=== PATIENT | male | born 1980 | race Caucasian/White ===

== ENCOUNTER 2019-05-12 09:15 | Emergency (ER) | payer SELFPAY ==
[2019-05-12] MEDS ORDERED: Adacel (T-DAP) 0.5 ML SYRINGE ONE (09:26)
[2019-05-12] MEDS ORDERED: Lidocaine 1% (PF) 30 ML VIAL ONE (09:39)
[2019-05-12] MEDS ORDERED: Morphine 4 MG/ML VIAL ONE (10:22)
[2019-05-12] MEDS ORDERED: Ondansetron PF 4 MG/2 ML Vial ONE (10:22)
[2019-05-12] MEDS ORDERED: Sodium Chloride 0.9% 0 ML ONE (10:22)
[2019-05-12] MEDS ORDERED: Sodium Chloride 0.9% 1,000 ML ONE (10:26)
== END 2019-05-12 12:00 | disposition home or self-care (01) ==
LOC: EDBD 09:15 → NAV ERS 09:15
DX: S61.012A Laceration without foreign body of left thumb without damage to nail, initial encounter (principal); F17.200 Nicotine dependence, unspecified, uncomplicated; W26.8XXA Contact with other sharp object(s), not elsewhere classified, initial encounter
CPT/HCPCS: 90471; 90715; 96372; J2001; J2270; J2405; J7050

== ENCOUNTER 2022-01-25 01:45 | Emergency (ER) | payer SELFPAY ==
[2022-01-25] MEDS ORDERED: Morphine 4 MG/ML VIAL ONE (02:11)
== END 2022-01-25 02:17 | disposition short-term general hospital (02) ==
LOC: NAV ERS 01:45
DX: N50.812 Left testicular pain (principal); F17.210 Nicotine dependence, cigarettes, uncomplicated
CPT/HCPCS: 96372; 99284; J2270

== ENCOUNTER 2022-04-28 19:10 | Emergency (ER) | payer SELFPAY ==
[2022-04-28] MEDS ORDERED: Acetaminophen 500 MG TAB ONE (19:53)
[2022-04-28 20:03] LABS: #Basophils 0.1 thou/uL (0.0-0.2); #Lymphocytes 1.7 thou/uL (1.20-3.40); #Monocytes 0.6 thou/uL (0.11-0.59); #Neutrophils 6.2 thou/uL (1.40-6.50); %Basophils 0.7 % (0.0-1.0); %Eosinophils 0.1 % (0.0-10.0); %Monocytes 6.5 % (0.0-10.0); %Neutrophils 72.7 % (42.0-75.0); Hemoglobin 13.7 g/dL (14.0-18.0); Mean Corpuscular Hemoglobin 28.3 pg (27.0-31.0); Mean Corpuscular Volume 88.4 fL (78.0-98.0); Mean Platelet Volume 7.3 fL (7.4-10.4); Platelet Count 263 thou/uL (130-400); RBC Distribution Width 13.8 % (11.5-14.5); Red Blood Cell (RBC) Count 4.84 mill/uL (4.70-6.10); White Blood Cell (WBC) Count 8.5 thou/uL (4.8-10.8)
[2022-04-28 20:19] LABS: ALT (SGPT) 25 U/L (8-55); AST (SGOT) 48 U/L (5-34); Alkaline Phosphatase 80 U/L (40-110); Anion Gap 17 mmol/L (10-20); BUN (Urea Nitrogen) 19 mg/dL (8.9-20.6); Bilirubin, Total 0.6 mg/dL (0.2-1.2); Calc. Creatinine Clearance 0 mL/min (70-130); Calcium 10.2 mg/dL (7.8-10.44); Carbon Dioxide 25 mmol/L (22-29); Chloride 103 mmol/L (98-107); Estimated GFR 76; Globulin 3.3 g/dL (2.4-3.5); Glucose 134 mg/dL (70-105); Protein, Total 8.3 g/dL (6.0-8.3); Sodium 141 mmol/L (136-145)
[2022-04-28 21:15] LABS: Bilirubin Negative (Negative); Blood, Urine Negative (Negative); Clarity Clear (Clear); Glucose, Urine (Dipstick) Negative (Negative); Ketone, Urine 15 mg/dL (Negative); Leukocyte Negative (Negative); Nitrite Negative (Negative); Protein, Urine (Dipstick) 30 mg/dL (Neg-Trace); Urobilinogen 0.2 mg/dL (Less than 2)
[2022-04-28 21:17] LABS: Specific Gravity, Urine 1.035 (1.002-1.036)
[2022-04-28 21:21] LABS: RBC/HPF 0-3 HPF (0-3)
[2022-04-28 21:22] LABS: Bacteria/HPF 1+ HPF (None Seen); Squamous Epithelial 0-3 HPF (0-3)
[2022-04-28] MEDS ORDERED: Sodium Chloride 0.9% 2,000 ML ONE (21:27)
[2022-04-28 21:43] LABS: Amphetamine Detected (NotDetected); Cocaine Metabolite Screen Not Detected (NotDetected); Methamphetamine Detected (NotDetected); Opiate Screen Not Detected (NotDetected); Phencyclidine (PCP) Not Detected (NotDetected); THC/Cannabinoid Screen Detected (NotDetected)
[2022-04-28 21:44] LABS: Barbiturates Screen Not Detected (NotDetected); Benzodiazepine Screen Not Detected (NotDetected); Medtox Control Line Valid? VALID (VALID); Methadone Not Detected (NotDetected); Oxycodone Screen Not Detected (NotDetected); Tricyclic Screen Not Detected (NotDetected)
[2022-04-28] MEDS ORDERED: cefTRIAXone\\ROCEPHIN 1 GM VIAL ONE (21:56)
[2022-04-28] MEDS ORDERED: Sodium Chloride 0.9% 100 ML ONE (21:56)
[2022-04-28] MEDS ORDERED: Azithromycin 250 MG TAB ONE (22:29)
== END 2022-04-28 22:49 | disposition home or self-care (01) ==
LOC: NAV ERS 19:10
DX: E86.0 Dehydration (principal); F15.10 Other stimulant abuse, uncomplicated; F17.200 Nicotine dependence, unspecified, uncomplicated
CPT/HCPCS: 36415; 80053; 80306; 81003; 81015; 85025; 87086; 96365; J0696; J3490; J7050

== ENCOUNTER 2022-07-28 17:54 | Emergency (ER) | payer OTHER, SELFPAY ==
[~2022-07-28 17:54] MED LIST: Iopamidol 370 76% 100 ML VIAL ONE
[2022-07-28] MEDS ORDERED: HYDROcodone/Acetaminophen 5/325 mg Tablet ONE (18:48)
[2022-07-28] MEDS ORDERED: CEFAZOLIN 1 GM VIAL ONE (18:49)
[2022-07-28] MEDS ORDERED: Ondansetron ODT 4 MG TAB ONE (18:49)
[2022-07-28] MEDS ORDERED: Sodium Chloride 0.9% 1,000 ML ONE (18:49)
[2022-07-28] MEDS ORDERED: Sodium Chloride 0.9% 100 ML ONE (18:49)
[2022-07-28 18:55] LABS: #Basophils 0.1 thou/uL (0.0-0.2); #Eosinphils 0.3 thou/uL (0.0-0.7); #Lymphocytes 1.4 thou/uL (1.20-3.40); #Monocytes 0.7 thou/uL (0.11-0.59); %Eosinophils 2.4 % (0.0-10.0); %Lymphocytes 12.1 % (21.0-51.0); %Monocytes 6.2 % (0.0-10.0); %Neutrophils 78.4 % (42.0-75.0); Hemoglobin 13.6 g/dL (14.0-18.0); Mean Corpuscular HGB CONC 32.5 g/dL (32.0-36.0); Mean Corpuscular Hemoglobin 30.4 pg (27.0-31.0); Mean Corpuscular Volume 93.4 fl (78.0-98.0); Mean Platelet Volume 6.7 fL (7.4-10.4); Platelet Count 350 10x3/uL (130-400); RBC Distribution Width 12.7 % (11.5-14.5); Red Blood Cell (RBC) Count 4.48 mill/uL (4.70-6.10); White Blood Cell (WBC) Count 11.4 10x3/uL (4.8-10.8)
[2022-07-28 19:12] LABS: ALT (SGPT) 17 U/L (8-55); AST (SGOT) 23 U/L (5-34); Albumin 4.2 g/dL (3.5-5.0); Alkaline Phosphatase 89 U/L (40-110); Anion Gap 17 mmol/L (10-20); BUN (Urea Nitrogen) 6 mg/dL (8.9-20.6); Bilirubin, Total 0.3 mg/dL (0.2-1.2); Calc. Creatinine Clearance 0 mL/min (70-130); Calcium 9.7 mg/dL (7.8-10.44); Carbon Dioxide 25 mmol/L (22-29); Chloride 98 mmol/L (98-107); Estimated GFR 116; Globulin 3.6 g/dL (2.4-3.5); Glucose 100 mg/dL (70-105); Potassium 4.6 mmol/L (3.5-5.1); Protein, Total 7.8 g/dL (6.0-8.3); Sodium 135 mmol/L (136-145)
[2022-07-28 19:38] LABS: Bilirubin Negative (Negative); Blood, Urine Negative (Negative); Clarity Clear (Clear); Glucose, Urine (Dipstick) Negative (Negative); Ketone, Urine Negative (Negative); Leukocyte Negative (Negative); Nitrite Negative (Negative); Protein, Urine (Dipstick) Trace mg/dL (Neg-Trace); Urobilinogen 0.2 mg/dL (Less than 2)
[2022-07-28] MEDS ORDERED: Vancomycin 1 GM VIAL ONE (20:14)
[2022-07-28] MEDS ORDERED: Sodium Chloride 0.9% 250 ML 250 ML ONE (20:14)
[2022-07-28] MEDS ORDERED: Morphine 2 MG/ML VIAL ONE (20:23)
[2022-07-28] MEDS ORDERED: Morphine 4 MG/ML VIAL ONE (20:24)
[2022-07-28] MEDS ORDERED: Boostrix 0.5 ML (Tdap) VIAL (>/=7 yrs of age) ONE (20:41)
[2022-07-28] MEDS ORDERED: Nicotine 21 MG PATCH TOP SCH (21:00)
== END 2022-07-28 22:38 | disposition home or self-care (01) ==
LOC: NAV ERS 17:54
DX: S20.211A Contusion of right front wall of thorax, initial encounter (principal); S60.511A Abrasion of right hand, initial encounter; S70.212A Abrasion, left hip, initial encounter; S70.211A Abrasion, right hip, initial encounter; S80.212A Abrasion, left knee, initial encounter; S80.211A Abrasion, right knee, initial encounter; S90.512A Abrasion, left ankle, initial encounter; S90.511A Abrasion, right ankle, initial encounter; S61.432A Puncture wound without foreign body of left hand, initial encounter; L03.114 Cellulitis of left upper limb; Z23 Encounter for immunization; F17.200 Nicotine dependence, unspecified, uncomplicated; V29.99XA Rider (driver) (passenger) of other motorcycle injured in unspecified traffic accident, initial encounter
CPT/HCPCS: 80053; 81003; 83605; 85025; 87040; 87077; 87149; 90471; 90715; 96365; 96375; J0690; J2270; J3370; J3490; J7050; Q0162; Q9967

== ENCOUNTER 2023-05-24 13:46 | Emergency (ER) | payer OTHER, SELFPAY ==
[2023-05-24] MEDS ORDERED: Acetaminophen/Codeine 30-300mg Tablet ONE (14:10)
== END 2023-05-24 14:40 ==
LOC: NAV ERS 13:46
DX: S92.002A Unspecified fracture of left calcaneus, initial encounter for closed fracture (principal); F17.210 Nicotine dependence, cigarettes, uncomplicated; X50.1XXA Overexertion from prolonged static or awkward postures, initial encounter; Y93.67 Activity, basketball; Y92.149 Unspecified place in prison as the place of occurrence of the external cause
CPT/HCPCS: 99283